=== PATIENT | male | born 1955 | race Caucasian/White ===

== ENCOUNTER → 2020-07-09 | Outpatient (CLI) | payer SELFPAY | LOC: M LABSMTC 15:16 | PROVIDERS: ATTEND Pediatrics | DX: Z20.828 Contact with and (suspected) exposure to other viral communicable diseases (principal) ==

== ENCOUNTER 2020-12-04 17:52 | Emergency (ER) | payer BC ==
[~2020-12-04] VITALS: Ht 165.1 cm; Wt 100.8 kg
[2020-12-04] MEDS ORDERED: NORT25CA2 (18:08)
[2020-12-04] MEDS ORDERED: DIVA500T94 (18:08)
[2020-12-04] MEDS ORDERED: PRAV20TA2 (18:08)
[2020-12-04] MEDS ORDERED: LEVO112T2 (18:08)
[2020-12-04] MEDS ORDERED: ATEN50TA2 (18:08)
[2020-12-04 18:45] LABS: BASO # 0.1 10^3/uL (0.0-0.2); BASO % 0.9 % (0.0-1.0); EOS # 0.6 10^3/uL (0.0-0.5); EOS % 5.4 % (0.0-3.0); HEMATOCRIT 46.7 % (42.0-52.0); HEMOGLOBIN 15.5 g/dl (13.5-17.5); LYMPH # 3.6 10^3/uL (1.5-5.0); LYMPH % 32.9 % (24.0-44.0); MEAN CORPUSCULAR HEMOGLOBIN 31.4 pg (27.0-33.0); MEAN CORPUSCULAR HGB CONC 33.2 g/dl (32.0-36.5); MEAN CORPUSCULAR VOLUME 94.7 fl (80.0-96.0); MONO # 0.9 10^3/uL (0.0-0.8); MONO % 8.1 % (2.0-8.0); NEUTROPHILS # 5.7 10^3/uL (1.5-8.5); NEUTROPHILS % 52.5 % (36.0-66.0); PLATELET COUNT, AUTOMATED 260 10^3/uL (150-450); RED BLOOD COUNT 4.93 10^6/uL (4.30-6.10); WHITE BLOOD COUNT 10.9 10^3/uL (4.0-10.0)
[2020-12-04 19:10] LABS: ALBUMIN 4.3 GM/DL (3.2-5.2); ALT/SGPT 26 U/L (12-78); BILIRUBIN,DIRECT 0.2 MG/DL (0.0-0.2); BILIRUBIN,TOTAL 0.5 MG/DL (0.2-1.0); BLOOD UREA NITROGEN 12 MG/DL (7-18); CALCIUM LEVEL 9.6 MG/DL (8.8-10.2); CARBON DIOXIDE LEVEL 30 MEQ/L (21-32); CHLORIDE LEVEL 106 MEQ/L (98-107); CREATININE FOR GFR 0.92 MG/DL (0.70-1.30); GLOMERULAR FILTRATION RATE > 60.0 (>49); GLUCOSE, FASTING 85 MG/DL (70-100); LIPASE 78 U/L (73-393); POTASSIUM SERUM 4.2 MEQ/L (3.5-5.1); SODIUM LEVEL 140 MEQ/L (136-145); TOTAL PROTEIN 7.8 GM/DL (6.4-8.2)
[2020-12-04 19:34] VITALS: BP 140/90
--- NOTE | 2020-12-04 19:40 | REP ---
INDICATION: ruq/flank pain. FINDINGS: Multiple ultrasonographic images of the liver show the hepatic parenchymal echo texture to appear unremarkable. There are no focal masses. There is no intrahepatic ductal dilatation. The common bile duct measures approximately 3 mm in its greatest transverse dimension. Multiple ultrasonographic images of the gallbladder show no focal or diffuse gallbladder wall thickening. There are no echogenic foci within the gallbladder lumen, which casts acoustic shadows. There is no pericholecystic edema. There is a tiny echogenic focus adherent to the gallbladder wall which does not cast an acoustic shadow or comet tail artifact. Images of the pancreatic region show no gross abnormality. The imaged portion of the right kidney is unremarkable. IMPRESSION: 3 mm sized possible gallbladder wall polyp but not seen on all images of the gallbladder. Examination otherwise within normal limits. Three-month follow-up is suggested. Accredited by the [employer] in General Ultrasound. <Electronically signed by Silvestre Zuniga > 12/04/201936
[2020-12-04] MEDS ORDERED: NS 1,000 ML IV ONE (20:05)
[2020-12-04] MEDS ORDERED: ISOVUE-370 76% 100ML VIAL As Ordered ONE (20:16)
--- NOTE | 2020-12-04 21:42 | REPVR ---
PROCEDURE INFORMATION: Exam: CT Abdomen And Pelvis With Contrast Exam date and time: 12/04/2020 8:27 PM Age: 65 years old Clinical indication: Abdominal pain; Localized; Right; Additional info: Right abd pain TECHNIQUE: Imaging protocol: Computed tomography of the abdomen and pelvis with contrast. Radiation optimization: All CT scans at this facility use at least one of these dose optimization techniques: automated exposure control; mA and/or kV adjustment per patient size (includes targeted exams where dose is matched to clinical indication); or iterative reconstruction. Contrast material: ISOVUE 370; Contrast volume: 100 ml; Contrast route: INTRAVENOUS (IV); COMPARISON: GALLBLADDER US 12/04/2020 7:15 PM FINDINGS: Lungs: The imaged portions of the lung bases are clear. The lungs were not fully imaged. Heart: No cardiomegaly or pericardial effusion. Liver: The attenuation of the liver is more than 40 Hounsfield units lower in attenuation compared to the spleen, which is compatible with fatty liver infiltration. No liver lesion. The contour of the liver is smooth. No hepatomegaly. Gallbladder and bile ducts: There is a 3 mm polyp along the posterior wall of the body of the gallbladder, which is better visualized in the gallbladder ultrasound on 12/04/2020 (image 37 of the sagittal series 203). No dilation of the bile ducts is noted. Pancreas: Normal. No dilation of the main pancreatic duct is noted. Spleen: Normal. No splenomegaly is noted. Adrenal glands: Normal. No adrenal mass is noted. Kidneys and ureters: There is a 1 cm round low-attenuation lesion along the posterior cortex of the lower pole of the left kidney with overlying renal cortical scarring (image 108 of the sagittal series 203), which measures approximately 36 Hounsfield units and is not fully characterized in this study. The right kidney is unremarkable. No stones are noted in the kidneys or ureters. There is no hydronephrosis or hydroureter. Stomach and bowel: The stomach is decompressed, limiting its optimal evaluation. The small bowel is unremarkable. There is no evidence for a bowel obstruction, diverticulosis, diverticulitis, colitis, perforated viscus, pneumatosis intestinalis, intussusception, or volvulus. The sigmoid colon is redundant. There is a moderate amount of formed stool in the ascending colon, transverse colon, and descending colon. Appendix: Normal. There is no evidence for appendicitis. Intraperitoneal space: Unremarkable. No fluid collection. No free air. Retroperitoneal space: No fluid collection. No mass. Vasculature: The abdominal aorta is patent, normal in caliber, and there is no dissection. The iliac arteries, common femoral arteries, renal arteries, celiac artery, superior mesenteric artery, and inferior mesenteric artery are patent. There are mild atherosclerotic calcifications. Lymph nodes: There is a 2.2 cm left para-aortic lymph node (image 65 of the axial series 201). There are subcentimeter precaval and periportal lymph nodes. Urinary bladder: The distended urinary bladder is normal in appearance. No stones or masses are seen in the bladder. Reproductive: The prostate gland and seminal vesicles are unremarkable. 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 The right L5 pars interarticularis is intact. There is no anterolisthesis of L5 on S1. No acute fracture or dislocation is noted. There are degenerative changes in the lumbar spine. Incidental note is made of a small bone island in the right femoral head. Soft tissues: There is a small fat containing indirect left inguinal hernia. IMPRESSION: 1. No acute findings in the abdomen or pelvis. 2. Moderate amount of formed stool in the ascending colon, transverse colon, and descending colon. No bowel obstruction. 3. Small fat containing indirect left inguinal hernia. 4. 3 mm polyp in the body of the gallbladder. See management guidelines below. 5. 1 cm indeterminate lesion along the posterior cortex of the lower pole of the left kidney. Further evaluation can be performed with a renal ultrasound or renal protocol MRI or CT without and with intravenous contrast on a nonemergent basis. 6. 2.2 cm enlarged left para-aortic lymph node. COMMENTS: Consistent with the [employer]'s Incidental Findings Committee white paper (J Am Avinash Radiol 2018): Any incidental renal lesion less than 1 cm or classified as too small to characterize, or any incidental cystic renal lesion characterized as simple-appearing, is likely benign. No follow-up imaging is recommended for these lesions per consensus recommendations based on imaging criteria. If the patient has no risk factors* for gallbladder malignancy: For polyp <6 mm, follow-up ultrasound at 1, 3, and 5 years. For polyp >6 mm, follow-up ultrasound at 6 months, then yearly for 5 years. If polyp increases in size >2 mm, consider cholecystectomy. For polyp >10 mm, cholecystectomy recommended. If the patient has risk factors* for gallbladder malignancy: For polyp <6 mm, follow-up ultrasound at 6 months, then yearly for 5 years. If polyp increases in size >2 mm, consider cholecystectomy. For polyp >6 mm, consider cholecystectomy. For polyp >10 mm, cholecystectomy recommended. *Risk factors for gallbladder malignancy: >50 years old, primary sclerosing cholangitis, ethnicity, sessile polyp, or focal wall thickening >4 mm. Electronically signed by: Meir Woods On 12/04/2020 21:41:50 PM
--- NOTE | 2020-12-05 06:44 | ED PDOC ---
Post-Departure Follow-Up dr man faxed formal report of us for fu Modesto Peguero MD December 05, 2020 06:44
== END 2020-12-04 22:58 | disposition home or self-care (01) ==
LOC: M ED 17:52
DX: K59.00 Constipation, unspecified (principal); K82.4 Cholesterolosis of gallbladder; S39.011A Strain of muscle, fascia and tendon of abdomen, initial encounter; X58.XXXA Exposure to other specified factors, initial encounter; Y92.89 Other specified places as the place of occurrence of the external cause; I10 Essential (primary) hypertension; E03.9 Hypothyroidism, unspecified; E78.5 Hyperlipidemia, unspecified; J30.2 Other seasonal allergic rhinitis; Z79.899 Other long term (current) drug therapy; Z79.890 Hormone replacement therapy
CPT/HCPCS: 74177; 76705; 80048; 80076; 81001; 83690; 85025; 96360; 99284; Q9967

== ENCOUNTER → 2021-03-18 | Outpatient (CLI) | payer MEDICARE, BC ==
[~2021-03-18] MED LIST: ATEN50TA2; DIVA500T94; LEVO112T2; NORT25CA2; PRAV20TA2
--- NOTE | 2021-03-18 10:14 | REP ---
INDICATION: F/U GB POLYP COMPARISON: 12/04/2020 TECHNIQUE: Real time gupta scale ultrasound examination using curved array transducer. FINDINGS: Liver is essentially normal in contour, size, and echogenicity without focal hepatic lesions identified. Pancreas is incompletely evaluated due to interposed bowel gas. The gallbladder again demonstrates a sub cm nonshadowing echogenic focus likely representing small benign polyp. No gallbladder wall thickening, pericholecystic fluid, or gallstones are identified. No biliary ductal dilatation is appreciated and the common bile duct measures 3 mm diameter. Right kidney is normal in reniform shape without hydronephrosis and measures 12.0 x 5.7 x 6.8 cm. No ascites in the visualized right upper quadrant. IMPRESSION: Findings consistent with small benign gallbladder polyp. Consider 12 month follow-up to confirm stability. <Electronically signed by Xavi Riggs > 03/18/21 [id number]
== END ==
LOC: M RAD 09:25
PROVIDERS: ATTEND Family Medicine
DX: K82.4 Cholesterolosis of gallbladder (principal)

== ENCOUNTER → 2022-04-14 | Outpatient (CLI) | payer MEDICARE, BC ==
[2022-04-14 14:39] LABS: LDH LACTATE DEHYDROGENASE 252 U/L (87-241); TOTAL PROTEIN 8.1 GM/DL (6.4-8.2)
[2022-04-15 15:45] LABS: ALBUMIN 4.46 GM/DL (3.29-5.55); ALPHA-1-GLOBULIN % 4.7 % (2.9-4.9); ALPHA-1-GLOBULINS 0.38 GM/DL (0.17-0.41); ALPHA-2-GLOBULINS 0.98 GM/DL (0.42-0.99); ALPHA-2-GLOBULINS % 12.1 % (7.1-11.8); BETA-1-GLOBULINS 0.54 GM/DL (0.28-0.60); BETA-1-GLOBULINS % 6.7 % (4.7-7.2); BETA-2-GLOBULINS 0.59 GM/DL (0.19-0.55); BETA-2-GLOBULINS % 7.3 % (3.2-6.5); GAMMA GLOBULIN % 14.2 % (11.1-18.8); GAMMA GLOBULINS 1.15 GM/DL (0.65-1.58)
== END ==
LOC: M PLALAB 09:45
PROVIDERS: ATTEND Physician Assistant
DX: D41.02 Neoplasm of uncertain behavior of left kidney (principal)

== ENCOUNTER → 2022-04-16 | Outpatient (CLI) | payer MEDICARE, BC ==
[~2022-04-16] MED LIST changes: +ISOVUE-370 76% 100ML VIAL As Ordered ONE
== END ==
LOC: M RAD 16:04
PROVIDERS: ATTEND Physician Assistant
DX: D41.02 Neoplasm of uncertain behavior of left kidney (principal)
CPT/HCPCS: 74178; Q9967

== ENCOUNTER → 2022-05-08 | Outpatient (REF) | payer MEDICARE, BC ==
[~2022-05-08] MED LIST changes: +ASPI81TA26 PO; +ELIQ5TAB; +ELIQ5TAB PO; +FLON1SPR NARES; +GABA-282; -ISOVUE-370 76% 100ML VIAL As Ordered ONE
[2022-05-08 14:37] LABS: INR 1.06; PROTHROMBIN TIME 14.2 SECONDS (12.7-14.5)
[2022-05-08 14:38] LABS: PARTIAL THROMBOPLASTIN TIME 35.2 SECONDS (25.9-37.0)
== END ==
LOC: M LAB REF 14:11
PROVIDERS: ATTEND Physician Assistant
DX: R59.0 Localized enlarged lymph nodes (principal)

== ENCOUNTER → 2022-05-14 | Outpatient (CLI) | payer MEDICARE, BC ==
[~2022-05-14] MED LIST changes: -ATEN50TA2; +ATEN50TA2 PO; -DIVA500T94; +DIVA500T94 PO; -GABA-282; +GABA-282 PO; +HYDR-3713 PO; +IBUP80TA PO; -LEVO112T2; +LEVO112T2 PO; +LIDOCAINE 1% MDV 20ML VIAL As Ordered ONE; -NORT25CA2; +NORT25CA2 PO; +ONDA4TAB6 PO; -PRAV20TA2; +PRAV20TA2 PO
[2022-05-14 09:26] VITALS: BP 145/87
== END ==
LOC: M IRPRO 08:17
PROVIDERS: ATTEND Physician Assistant
DX: C77.2 Secondary and unspecified malignant neoplasm of intra-abdominal lymph nodes (principal); C64.9 Malignant neoplasm of unspecified kidney, except renal pelvis

== ENCOUNTER 2022-05-16 20:44 | Emergency (ER) | payer MEDICARE, BC ==
[~2022-05-16] VITALS: Ht 165.1 cm; Wt 97.7 kg
[~2022-05-16 20:44] MED LIST changes: -HYDR-3713 PO; -IBUP80TA PO; -LIDOCAINE 1% MDV 20ML VIAL As Ordered ONE; -ONDA4TAB6 PO
[2022-05-16 21:58] LABS: HEMATOCRIT 41.9 % (42.0-52.0); HEMOGLOBIN 13.8 g/dl (13.5-17.5); MEAN CORPUSCULAR HEMOGLOBIN 30.7 pg (27.0-33.0); MEAN CORPUSCULAR HGB CONC 32.9 g/dl (32.0-36.5); MEAN CORPUSCULAR VOLUME 93.1 fl (80.0-96.0); PLATELET COUNT, AUTOMATED 233 10^3/uL (150-450); WHITE BLOOD COUNT 13.6 10^3/uL (4.0-10.0)
[2022-05-16 22:12] LABS: ATYPICAL LYMPH 3 % (0-5); BASOPHILS 1 % (0-1); EOSINOPHILS 1 % (0-3); LYMPHOCYTES 12 % (16-44); MONOCYTES 9 % (0-5); MYELOCYTES 1 % (0-0); NEUTROPHILS 70 % (28-66); PLATELET CLUMPS SMALL AMT; PLATELET ESTIMATE NORMAL (NORMAL)
[2022-05-16 22:31] LABS: ALBUMIN 3.7 GM/DL (3.2-5.2); BILIRUBIN,DIRECT 0.3 MG/DL (0.0-0.2); BILIRUBIN,TOTAL 0.9 MG/DL (0.2-1.0); TOTAL PROTEIN 8.2 GM/DL (6.4-8.2)
[2022-05-16] MEDS ORDERED: ONDANSETRON 4MG 2ML VIAL IV ONE (23:40)
[2022-05-16] MEDS ORDERED: NS 1,000 ML IV ONE (23:40)
[2022-05-16] MEDS ORDERED: MORPHINE 4 MG/ML 1ML VIAL/SYRINGE IV ONE (23:40)
[2022-05-16] MEDS ORDERED: ISOVUE-370 76% 100ML VIAL As Ordered ONE (23:46)
[2022-05-17 00:35] LABS: INR 1.17; PARTIAL THROMBOPLASTIN TIME 36.8 SECONDS (24.8-34.2); PROTHROMBIN TIME 15.1 SECONDS (12.5-14.5)
[2022-05-17 00:45] VITALS: BP 140/65
[2022-05-17] MEDS ORDERED: HYDR-3713 PO (02:03)
[2022-05-17] MEDS ORDERED: NORCO 5/325MG TABLET (HOME DOSE PACK) PO ONE (02:10)
[2022-05-17] MEDS ORDERED: ONDA4TAB6 PO (02:18)
[2022-05-19] MEDS ORDERED: IBUP80TA PO (12:11)
[2022-05-20] MEDS ORDERED: ELIQ5TAB PO (14:28)
[2022-05-21] MEDS ORDERED: ELIQ5TAB PO (10:06)
== END 2022-05-17 02:25 | disposition home or self-care (01) ==
LOC: M ED 20:44
DX: R10.9 Unspecified abdominal pain (principal); R11.0 Nausea; I82.3 Embolism and thrombosis of renal vein; R51.9 Headache, unspecified; I10 Essential (primary) hypertension; E03.9 Hypothyroidism, unspecified; G47.30 Sleep apnea, unspecified; E66.9 Obesity, unspecified; Z79.01 Long term (current) use of anticoagulants; Z79.899 Other long term (current) drug therapy; Z79.890 Hormone replacement therapy
CPT/HCPCS: 74177; 80047; 80076; 81000; 83605; 83690; 85025; 85610; 85730; 87040; 96361; 96374; 96375; 99284; J2270; J2405; Q9967

== ENCOUNTER → 2022-06-01 | Outpatient (CLI) | payer MEDICARE, BC ==
[~2022-06-01] MED LIST changes: +HYDR-3713 PO; +IBUP80TA PO; +ONDA4TAB6 PO
== END ==
LOC: M LABSMTC 11:37
PROVIDERS: ATTEND Anesthesiology
DX: Z01.818 Encounter for other preprocedural examination (principal); Z11.52 Encounter for screening for COVID-19

== ENCOUNTER 2022-06-03 08:31 | Day surgery (SDC) | payer MEDICARE, BC ==
[~2022-06-03] VITALS: Ht 165.1 cm; Wt 97.1 kg
[~2022-06-03 08:31] MED LIST changes: +NS 1,000 ML IV ONE
[2022-06-03] MEDS ORDERED: propofoL 200 MG/20 ML VIAL As Ordered ONE (09:37)
[2022-06-03] MEDS ORDERED: LIDOCAINE 2% 100MG/5ML SDV (FOR ANES.) As Ordered ONE (09:37)
[2022-06-03 11:20] VITALS: BP 143/99
== END 2022-06-03 11:40 | disposition home or self-care (01) ==
LOC: M OPP 08:31
PROVIDERS: ATTEND Internal Medicine Gastroenterology
DX: Z12.11 Encounter for screening for malignant neoplasm of colon (principal); Z86.010 Personal history of colon polyps; D12.3 Benign neoplasm of transverse colon; D12.4 Benign neoplasm of descending colon; G47.30 Sleep apnea, unspecified; Z99.89 Dependence on other enabling machines and devices; Z79.01 Long term (current) use of anticoagulants; Z79.02 Long term (current) use of antithrombotics/antiplatelets; Z79.51 Long term (current) use of inhaled steroids; Z79.82 Long term (current) use of aspirin; Z79.899 Other long term (current) drug therapy; G43.909 Migraine, unspecified, not intractable, without status migrainosus; I10 Essential (primary) hypertension; E03.9 Hypothyroidism, unspecified

== ENCOUNTER → 2022-07-15 | Outpatient (CLI) | payer MEDICARE, BC ==
[~2022-07-15] MED LIST changes: +CABO40TA PO; -NS 1,000 ML IV ONE
[2022-07-15 14:37] LABS: BASO # 0.1 10^3/uL (0.0-0.2); EOS # 0.2 10^3/uL (0.0-0.5); EOS % 1.7 % (0.0-3.0); HEMATOCRIT 46.2 % (42.0-52.0); HEMOGLOBIN 14.6 g/dl (13.5-17.5); LYMPH # 2.6 10^3/uL (1.5-5.0); LYMPH % 25.6 % (24.0-44.0); MEAN CORPUSCULAR HEMOGLOBIN 28.6 pg (27.0-33.0); MEAN CORPUSCULAR HGB CONC 31.6 g/dl (32.0-36.5); MEAN CORPUSCULAR VOLUME 90.6 fl (80.0-96.0); MONO # 0.9 10^3/uL (0.0-0.8); MONO % 9.2 % (2.0-8.0); NEUTROPHILS # 6.2 10^3/uL (1.5-8.5); NEUTROPHILS % 62.2 % (36.0-66.0); PLATELET COUNT, AUTOMATED 354 10^3/uL (150-450)
[2022-07-15 15:18] LABS: ALBUMIN 3.8 G/DL (3.2-5.2); ALKALINE PHOSPHATASE 59 U/L (46-116); ALT/SGPT 44 U/L (7.0-40); AST/SGOT 38 U/L (<34); BILIRUBIN,TOTAL 0.3 MG/DL (0.3-1.2); BLOOD UREA NITROGEN 18 MG/DL (9-23); CARBON DIOXIDE LEVEL 30 MMOL/L (20-31); CHLORIDE LEVEL 98 MMOL/L (98-107); CREATININE FOR GFR 1.19 MG/DL (0.70-1.30); GLOMERULAR FILTRATION RATE > 60.0 (>49); GLUCOSE, FASTING 90 MG/DL (74-106); SODIUM LEVEL 136 MMOL/L (136-145); THYROID STIMULATING HORMONE 0.994 uIU/ML (0.55-4.78); TOTAL PROTEIN 8.2 G/DL (5.7-8.2)
== END ==
LOC: M PLALAB 11:30
DX: C64.2 Malignant neoplasm of left kidney, except renal pelvis (principal)

== ENCOUNTER → 2022-07-18 | Outpatient (CLI) | payer MEDICARE, BC ==
[~2022-07-18] MED LIST changes: +AMLO1TAB24 PO; +OXYC1TAB23 PO
[2022-07-18 15:38] LABS: MAGNESIUM LEVEL 2.2 MG/DL (1.8-2.4)
[2022-07-18 15:40] LABS: ALBUMIN 3.7 G/DL (3.2-5.2); ALKALINE PHOSPHATASE 57 U/L (46-116); ALT/SGPT 36 U/L (7.0-40); AST/SGOT 33 U/L (<34); BILIRUBIN,TOTAL 0.4 MG/DL (0.3-1.2); BLOOD UREA NITROGEN 17 MG/DL (9-23); CALCIUM LEVEL 9.3 MG/DL (8.3-10.6); CARBON DIOXIDE LEVEL 30 MMOL/L (20-31); CHLORIDE LEVEL 100 MMOL/L (98-107); CREATININE FOR GFR 1.09 MG/DL (0.70-1.30); GLOMERULAR FILTRATION RATE > 60.0 (>49); GLUCOSE, FASTING 89 MG/DL (74-106); POTASSIUM SERUM 4.9 MMOL/L (3.5-5.1); SODIUM LEVEL 137 MMOL/L (136-145); TOTAL PROTEIN 7.8 G/DL (5.7-8.2)
== END ==
LOC: M PLALAB 13:48
PROVIDERS: ATTEND Physician Assistant
DX: C64.2 Malignant neoplasm of left kidney, except renal pelvis (principal)

== ENCOUNTER → 2022-07-21 | Outpatient (CLI) | payer MEDICARE, BC ==
[~2022-07-21] MED LIST changes: +LIDOCAINE 1% MDV 20ML VIAL As Ordered ONE; +MIDAZOLAM INJ 2MG/2ML VIAL (J2250 PER 1MG) As Ordered ONE; +NS 1,000 ML IV SCH; +ceFAZolin 2 GM/D5W 50 ML IV BAG As Ordered ONE; +ceFAZolin SOD 2 GM in IV 1 EA IV ONE; +diphenhydrAMINE 50MG/ML VIAL As Ordered ONE; +fentaNYL 100 MCG/2 ML INJECTION As Ordered ONE
[2022-07-21 12:00] VITALS: BP 138/89
== END ==
LOC: M IRPRO 07:30
DX: C64.2 Malignant neoplasm of left kidney, except renal pelvis (principal)
CPT/HCPCS: 36561; 87635; 99152; 99153; C1769; C1788; C1894; J0690; J1200; J1642; J1644; J2250; J3010

== ENCOUNTER 2022-07-28 12:12 | Emergency (ER) | payer MEDICARE, BC ==
[~2022-07-28] VITALS: Ht 165.1 cm; Wt 97.7 kg
[~2022-07-28 12:12] MED LIST changes: -LIDOCAINE 1% MDV 20ML VIAL As Ordered ONE; -MIDAZOLAM INJ 2MG/2ML VIAL (J2250 PER 1MG) As Ordered ONE; -NS 1,000 ML IV SCH; -ceFAZolin 2 GM/D5W 50 ML IV BAG As Ordered ONE; -ceFAZolin SOD 2 GM in IV 1 EA IV ONE; -diphenhydrAMINE 50MG/ML VIAL As Ordered ONE; -fentaNYL 100 MCG/2 ML INJECTION As Ordered ONE
[2022-07-28] MEDS ORDERED: OPDI1INJ IV (13:11)
[2022-07-28 13:25] LABS: BASO # 0.1 10^3/uL (0.0-0.2); EOS # 0.2 10^3/uL (0.0-0.5); EOS % 2.9 % (0.0-3.0); HEMATOCRIT 41.4 % (42.0-52.0); HEMOGLOBIN 13.6 g/dl (13.5-17.5); LYMPH # 1.7 10^3/uL (1.5-5.0); MEAN CORPUSCULAR HEMOGLOBIN 28.5 pg (27.0-33.0); MEAN CORPUSCULAR HGB CONC 32.9 g/dl (32.0-36.5); MEAN CORPUSCULAR VOLUME 86.6 fl (80.0-96.0); MONO # 0.6 10^3/uL (0.0-0.8); MONO % 8.3 % (2.0-8.0); NEUTROPHILS # 4.7 10^3/uL (1.5-8.5); NEUTROPHILS % 64.7 % (36.0-66.0); PLATELET COUNT, AUTOMATED 214 10^3/uL (150-450); RED BLOOD COUNT 4.78 10^6/uL (4.30-6.10); WHITE BLOOD COUNT 7.2 10^3/uL (4.0-10.0)
[2022-07-28 13:37] LABS: INR 0.97; PROTHROMBIN TIME 13.1 SECONDS (12.5-14.5)
[2022-07-28 13:38] LABS: PARTIAL THROMBOPLASTIN TIME 31.5 SECONDS (24.8-34.2)
[2022-07-28 13:42] LABS: LIPASE 32 U/L (12-53)
[2022-07-28 13:44] LABS: BILIRUBIN,DIRECT 0.1 MG/DL (<0.4)
[2022-07-28 13:45] LABS: ALBUMIN 3.4 G/DL (3.2-5.2); ALKALINE PHOSPHATASE 66 U/L (46-116); ALT/SGPT 41 U/L (7.0-40); AST/SGOT 49 U/L (<34); BILIRUBIN,TOTAL 0.4 MG/DL (0.3-1.2); BLOOD UREA NITROGEN 13 MG/DL (9-23); CALCIUM LEVEL 9.1 MG/DL (8.3-10.6); CARBON DIOXIDE LEVEL 27 MMOL/L (20-31); CHLORIDE LEVEL 103 MMOL/L (98-107); CK-MB VALUE MASS < 1.0 NG/ML (<3.6); CREATININE FOR GFR 0.91 MG/DL (0.70-1.30); GLOMERULAR FILTRATION RATE > 60.0 (>49); GLUCOSE, FASTING 97 MG/DL (74-106); POTASSIUM SERUM 5.5 MMOL/L (3.5-5.1); SODIUM LEVEL 139 MMOL/L (136-145); TOTAL PROTEIN 7.9 G/DL (5.7-8.2)
[2022-07-28 13:48] LABS: FREE T4 1.42 NG/DL (0.89-1.76); THYROID STIMULATING HORMONE 0.766 uIU/ML (0.55-4.78)
[2022-07-28 13:51] LABS: CPK CREATINE PHOSPHOKINASE 145 U/L (46-171); MB/CK RELATIVE INDEX 0.68 (< OR =4)
[2022-07-28 14:39] LABS: CK-MB VALUE MASS < 1.0 NG/ML (<3.6)
[2022-07-28 14:41] LABS: CPK CREATINE PHOSPHOKINASE 115 U/L (46-171); MB/CK RELATIVE INDEX 0.86 (< OR =4)
[2022-07-28 15:15] VITALS: BP 148/95
[2022-07-28] MEDS ORDERED: HYDR-3490 PO (15:32)
== END 2022-07-28 15:48 | disposition home or self-care (01) ==
LOC: EDBD 12:12 → M ED 12:12
DX: I10 Essential (primary) hypertension (principal); T46.1X5A Adverse effect of calcium-channel blockers, initial encounter; C64.9 Malignant neoplasm of unspecified kidney, except renal pelvis; E78.5 Hyperlipidemia, unspecified; F10.10 Alcohol abuse, uncomplicated; G47.33 Obstructive sleep apnea (adult) (pediatric); Z79.810 Long term (current) use of selective estrogen receptor modulators (SERMs); Z79.891 Long term (current) use of opiate analgesic; Z79.899 Other long term (current) drug therapy

== ENCOUNTER → 2022-08-05 | Outpatient (POV) | payer MEDICARE, BC ==
[~2022-08-05] VITALS: Ht 165.1 cm; Wt 97.7 kg
[~2022-08-05] MED LIST changes: +HYDR-3490 PO; +OPDI1INJ IV
[2022-08-05 11:20] VITALS: BP 136/95
== END ==
LOC: M IRPOV 11:05
PROVIDERS: ATTEND Radiology Diagnostic Radiology
DX: Z45.2 Encounter for adjustment and management of vascular access device (principal); J30.89 Other allergic rhinitis

== ENCOUNTER → 2022-10-14 | Outpatient (CLI) | payer MEDICARE, BC ==
[~2022-10-14] MED LIST changes: +LOSA50TA28 PO; +PROHANCE 279.3MG/ML 15ML VIAL As Ordered ONE; +PROHANCE 279.3MG/ML 5ML VIAL As Ordered ONE
== END ==
LOC: M RAD 08:53
DX: C64.2 Malignant neoplasm of left kidney, except renal pelvis (principal)
CPT/HCPCS: 70553; A9576; J1642

== ENCOUNTER → 2022-10-17 | Outpatient (CLI) | payer MEDICARE, BC ==
[~2022-10-17] MED LIST changes: -PROHANCE 279.3MG/ML 15ML VIAL As Ordered ONE; -PROHANCE 279.3MG/ML 5ML VIAL As Ordered ONE
[2022-10-17 12:53] LABS: ALBUMIN 3.3 G/DL (3.2-5.2); ALKALINE PHOSPHATASE 43 U/L (46-116); ALT/SGPT 30 U/L (7.0-40); AST/SGOT 19 U/L (<34); BILIRUBIN,TOTAL 0.6 MG/DL (0.3-1.2); BLOOD UREA NITROGEN 11 MG/DL (9-23); CARBON DIOXIDE LEVEL 31 MMOL/L (20-31); CHLORIDE LEVEL 97 MMOL/L (98-107); GLOMERULAR FILTRATION RATE > 60.0 (>49); GLUCOSE, FASTING 123 MG/DL (74-106); POTASSIUM SERUM 4.2 MMOL/L (3.5-5.1); SODIUM LEVEL 135 MMOL/L (136-145)
[2022-10-17 18:08] LABS: TOTAL PROTEIN 6.7 G/DL (5.7-8.2)
== END ==
LOC: M PLALAB 08:58
PROVIDERS: ATTEND Physician Assistant
DX: C64.2 Malignant neoplasm of left kidney, except renal pelvis (principal)

== ENCOUNTER → 2022-11-06 | Outpatient (CLI) | payer MEDICARE, BC ==
[2022-11-06 14:43] LABS: LIPASE 35 U/L (12-53)
[2022-11-06 14:44] LABS: AMYLASE 102 U/L (30-118)
[2022-11-06 14:45] LABS: ALBUMIN 3.8 G/DL (3.2-5.2); ALKALINE PHOSPHATASE 43 U/L (46-116); ALT/SGPT 37 U/L (7.0-40); AST/SGOT 26 U/L (<34); BILIRUBIN,TOTAL 0.3 MG/DL (0.3-1.2); BLOOD UREA NITROGEN 16 MG/DL (9-23); CALCIUM LEVEL 9.4 MG/DL (8.3-10.6); CARBON DIOXIDE LEVEL 31 MMOL/L (20-31); CHLORIDE LEVEL 100 MMOL/L (98-107); CREATININE FOR GFR 1.24 MG/DL (0.70-1.30); GLOMERULAR FILTRATION RATE > 60.0 (>49); GLUCOSE, FASTING 91 MG/DL (74-106); POTASSIUM SERUM 4.4 MMOL/L (3.5-5.1); SODIUM LEVEL 139 MMOL/L (136-145); TOTAL PROTEIN 7.4 G/DL (5.7-8.2)
[2022-11-06 14:48] LABS: BASO # 0.1 10^3/uL (0.0-0.2); BASO % 0.8 % (0.0-1.0); EOS # 0.6 10^3/uL (0.0-0.5); EOS % 5.9 % (0.0-3.0); HEMATOCRIT 39.9 % (42.0-52.0); LYMPH # 2.1 10^3/uL (1.5-5.0); LYMPH % 22.1 % (24.0-44.0); MEAN CORPUSCULAR HEMOGLOBIN 32.3 pg (27.0-33.0); MEAN CORPUSCULAR HGB CONC 32.6 g/dl (32.0-36.5); MEAN CORPUSCULAR VOLUME 99.3 fl (80.0-96.0); MONO # 0.9 10^3/uL (0.0-0.8); MONO % 9.3 % (2.0-8.0); NEUTROPHILS % 61.7 % (36.0-66.0); PLATELET COUNT, AUTOMATED 291 10^3/uL (150-450); RED BLOOD COUNT 4.02 10^6/uL (4.30-6.10); WHITE BLOOD COUNT 9.7 10^3/uL (4.0-10.0)
== END ==
LOC: M PLALAB 10:14
PROVIDERS: ATTEND Family Medicine
DX: C64.2 Malignant neoplasm of left kidney, except renal pelvis (principal)

== ENCOUNTER → 2022-11-13 | Outpatient (CLI) | payer MEDICARE, BC ==
[2022-11-13 11:56] LABS: BASO # 0.1 10^3/uL (0.0-0.2); BASO % 1.2 % (0.0-1.0); EOS # 0.5 10^3/uL (0.0-0.5); EOS % 5.3 % (0.0-3.0); HEMATOCRIT 41.7 % (42.0-52.0); HEMOGLOBIN 13.5 g/dl (13.5-17.5); LYMPH # 1.8 10^3/uL (1.5-5.0); LYMPH % 18.8 % (24.0-44.0); MEAN CORPUSCULAR HEMOGLOBIN 31.8 pg (27.0-33.0); MEAN CORPUSCULAR HGB CONC 32.4 g/dl (32.0-36.5); MEAN CORPUSCULAR VOLUME 98.3 fl (80.0-96.0); MONO # 0.6 10^3/uL (0.0-0.8); MONO % 6.5 % (2.0-8.0); NEUTROPHILS # 6.5 10^3/uL (1.5-8.5); NEUTROPHILS % 68.1 % (36.0-66.0); PLATELET COUNT, AUTOMATED 318 10^3/uL (150-450); RED BLOOD COUNT 4.24 10^6/uL (4.30-6.10); WHITE BLOOD COUNT 9.5 10^3/uL (4.0-10.0)
[2022-11-13 12:06] LABS: ALBUMIN 3.7 G/DL (3.2-5.2); BILIRUBIN,TOTAL 0.4 MG/DL (0.3-1.2); CALCIUM LEVEL 9.6 MG/DL (8.3-10.6); CREATININE FOR GFR 1.35 MG/DL (0.70-1.30); GLOMERULAR FILTRATION RATE 56.3 (>49); TOTAL PROTEIN 7.3 G/DL (5.7-8.2)
== END ==
LOC: M PLALAB 08:33
DX: C64.2 Malignant neoplasm of left kidney, except renal pelvis (principal)

== ENCOUNTER → 2022-11-20 | Outpatient (CLI) | payer MEDICARE, BC ==
[2022-11-20 11:12] LABS: BASO # 0.1 10^3/uL (0.0-0.2); BASO % 0.7 % (0.0-1.0); EOS # 0.6 10^3/uL (0.0-0.5); EOS % 6.5 % (0.0-3.0); HEMATOCRIT 38.3 % (42.0-52.0); HEMOGLOBIN 12.7 g/dl (13.5-17.5); LYMPH % 19.8 % (24.0-44.0); MEAN CORPUSCULAR HEMOGLOBIN 31.9 pg (27.0-33.0); MEAN CORPUSCULAR HGB CONC 33.2 g/dl (32.0-36.5); MEAN CORPUSCULAR VOLUME 96.2 fl (80.0-96.0); MONO # 0.6 10^3/uL (0.0-0.8); MONO % 5.9 % (2.0-8.0); NEUTROPHILS # 6.6 10^3/uL (1.5-8.5); NEUTROPHILS % 66.9 % (36.0-66.0); PLATELET COUNT, AUTOMATED 332 10^3/uL (150-450); RED BLOOD COUNT 3.98 10^6/uL (4.30-6.10); WHITE BLOOD COUNT 9.9 10^3/uL (4.0-10.0)
[2022-11-20 11:41] LABS: ALBUMIN 3.4 G/DL (3.2-5.2); BILIRUBIN,TOTAL 0.4 MG/DL (0.3-1.2); CALCIUM LEVEL 9.4 MG/DL (8.3-10.6); CREATININE FOR GFR 1.29 MG/DL (0.70-1.30); GLOMERULAR FILTRATION RATE 59.3 (>49); POTASSIUM SERUM 4.3 MMOL/L (3.5-5.1); TOTAL PROTEIN 7.4 G/DL (5.7-8.2)
== END ==
LOC: M PLALAB 08:58
PROVIDERS: ATTEND Nurse Practitioner
DX: C64.2 Malignant neoplasm of left kidney, except renal pelvis (principal)

== ENCOUNTER → 2023-07-03 | Outpatient (CLI) | payer MEDICARE, BC ==
[~2023-07-03] MED LIST changes: +CABO20TA; +LEVO125T4
== END ==
LOC: M RAD 11:21
PROVIDERS: ATTEND Physician Assistant Medical
DX: M79.661 Pain in right lower leg (principal); M79.89 Other specified soft tissue disorders

== ENCOUNTER → 2023-08-12 | Outpatient (CLI) | payer MEDICARE, BC ==
[~2023-08-12] MED LIST changes: +PROHANCE 279.3MG/ML 15ML VIAL As Ordered ONE; +PROHANCE 279.3MG/ML 5ML VIAL As Ordered ONE
== END ==
LOC: M RAD 14:29
DX: M54.50 Low back pain, unspecified (principal)
CPT/HCPCS: 72157; A9576

== ENCOUNTER → 2023-09-04 | Outpatient (CLI) | payer MEDICARE, BC ==
[~2023-09-04] MED LIST changes: -PROHANCE 279.3MG/ML 15ML VIAL As Ordered ONE; -PROHANCE 279.3MG/ML 5ML VIAL As Ordered ONE
== END ==
LOC: M PLARAD 09:58
PROVIDERS: ATTEND Physician Assistant Medical
DX: M54.50 Low back pain, unspecified (principal)

== ENCOUNTER → 2023-09-30 | Outpatient (CLI) | payer MEDICARE, BC | LOC: M ONCR 10:45 | PROVIDERS: ATTEND General Practice | DX: C79.51 Secondary malignant neoplasm of bone (principal); C64.9 Malignant neoplasm of unspecified kidney, except renal pelvis; Z79.620 Long term (current) use of immunosuppressive biologic; G89.3 Neoplasm related pain (acute) (chronic); Z71.2 Person consulting for explanation of examination or test findings; Z79.01 Long term (current) use of anticoagulants; Z79.51 Long term (current) use of inhaled steroids; Z79.890 Hormone replacement therapy; Z79.899 Other long term (current) drug therapy ==

== ENCOUNTER → 2023-10-09 | Outpatient (CLI) | payer MEDICARE, BC ==
[~2023-10-09] MED LIST changes: +PROHANCE 279.3MG/ML 15ML VIAL ONE; +PROHANCE 279.3MG/ML 5ML VIAL ONE
== END ==
LOC: M PLAIMG 12:31
PROVIDERS: ATTEND Physician Assistant Medical
DX: C64.2 Malignant neoplasm of left kidney, except renal pelvis (principal); M48.02 Spinal stenosis, cervical region; M54.50 Low back pain, unspecified
CPT/HCPCS: 70553; 72156; A9576

== ENCOUNTER 2023-10-20 08:51 | Outpatient (RCR) | payer MEDICARE, BC ==
[~2023-10-20 08:51] MED LIST changes: +DEXA4TA PO; -PROHANCE 279.3MG/ML 15ML VIAL ONE; -PROHANCE 279.3MG/ML 5ML VIAL ONE
[2023-11-03] MEDS ORDERED: DEXA4TA PO (15:06)
== END 2023-11-01 ==
LOC: M ONCR 08:51
PROVIDERS: ATTEND General Practice
DX: Z51.0 Encounter for antineoplastic radiation therapy (principal); C79.51 Secondary malignant neoplasm of bone

== ENCOUNTER → 2023-10-28 | Outpatient (CLI) | payer MEDICARE, BC ==
[~2023-10-28] MED LIST changes: +LIDOCAINE 1% MDV 20ML VIAL As Ordered ONE
[2023-10-28 11:45] VITALS: TEMP 97.5
[2023-10-28 12:19] LABS: INR 1.06; PROTHROMBIN TIME 13.5 SECONDS (12.5-14.5)
[2023-10-28 14:45] VITALS: BP 131/90; O2SAT 96
== END ==
LOC: M IRPRO 11:33
PROVIDERS: ATTEND Physician Assistant Medical
DX: C64.2 Malignant neoplasm of left kidney, except renal pelvis (principal)

== ENCOUNTER → 2023-11-03 | Outpatient (CLI) | payer MEDICARE, BC ==
[~2023-11-03] MED LIST changes: -LIDOCAINE 1% MDV 20ML VIAL As Ordered ONE
== END ==
LOC: M ONCR 09:23
PROVIDERS: ATTEND General Practice
DX: C64.2 Malignant neoplasm of left kidney, except renal pelvis (principal); M89.8X8 Other specified disorders of bone, other site; M54.9 Dorsalgia, unspecified; G89.29 Other chronic pain; J30.2 Other seasonal allergic rhinitis; Z79.899 Other long term (current) drug therapy; Z92.21 Personal history of antineoplastic chemotherapy; Z92.3 Personal history of irradiation

== ENCOUNTER → 2023-11-06 | Outpatient (CLI) | payer MEDICARE, BC ==
[~2023-11-06] MED LIST changes: +GASTROGRAFIN SOLUTION 30ML ONE; +ISOVUE-370 76% 100ML VIAL ONE
== END ==
LOC: M PLAIMG 08:59
PROVIDERS: ATTEND Nurse Practitioner
DX: C64.2 Malignant neoplasm of left kidney, except renal pelvis (principal); I82.3 Embolism and thrombosis of renal vein
CPT/HCPCS: 71260; 74177; Q9963; Q9967

== ENCOUNTER → 2024-02-10 | Outpatient (CLI) | payer MEDICARE, BC ==
[~2024-02-10] MED LIST changes: -GASTROGRAFIN SOLUTION 30ML ONE; -ISOVUE-370 76% 100ML VIAL ONE; +ONDA-282 PO; -ONDA4TAB6 PO
== END ==
LOC: M ONCR 09:54
PROVIDERS: ATTEND General Practice
DX: C79.51 Secondary malignant neoplasm of bone (principal); C64.2 Malignant neoplasm of left kidney, except renal pelvis; G89.29 Other chronic pain; M54.9 Dorsalgia, unspecified; Z79.01 Long term (current) use of anticoagulants; Z79.69 Long term (current) use of other immunomodulators and immunosuppressants; Z79.899 Other long term (current) drug therapy; Z92.3 Personal history of irradiation

== ENCOUNTER → 2024-04-19 | Outpatient (CLI) | payer MEDICARE, BC ==
[~2024-04-19] MED LIST changes: +GASTROGRAFIN SOLUTION 30ML As Ordered ONE; +ISOVUE-370 76% 100ML VIAL As Ordered ONE
== END ==
LOC: M RAD 13:38
PROVIDERS: ATTEND Nurse Practitioner
DX: C64.2 Malignant neoplasm of left kidney, except renal pelvis (principal)
CPT/HCPCS: 71260; 74177; Q9963; Q9967

== ENCOUNTER → 2024-04-22 | Outpatient (CLI) | payer MEDICARE, BC ==
[~2024-04-22] MED LIST changes: -GASTROGRAFIN SOLUTION 30ML As Ordered ONE; -ISOVUE-370 76% 100ML VIAL As Ordered ONE
== END ==
LOC: M PLARAD 14:03
PROVIDERS: ATTEND Nurse Practitioner
DX: C64.9 Malignant neoplasm of unspecified kidney, except renal pelvis (principal)

== ENCOUNTER → 2024-07-05 | Outpatient (CLI) | payer MEDICARE, BC ==
[~2024-07-05] MED LIST changes: +GABA-1172 PO; -GABA-282 PO; +ISOVUE-370 76% 100ML VIAL As Ordered ONE
== END ==
LOC: M RAD 09:03
DX: C64.2 Malignant neoplasm of left kidney, except renal pelvis (principal)
CPT/HCPCS: 71260; 74177; Q9967

== ENCOUNTER → 2024-07-09 | Outpatient (REF) | payer MEDICARE, BC ==
[~2024-07-09] MED LIST changes: -ISOVUE-370 76% 100ML VIAL As Ordered ONE
== END ==
LOC: M LAB REF 19:03
PROVIDERS: ATTEND Physician Assistant
DX: N39.0 Urinary tract infection, site not specified (principal)

== ENCOUNTER → 2024-07-26 | Outpatient (CLI) | payer MEDICARE, BC ==
[~2024-07-26] MED LIST changes: +REGL5TAB2 PO
== END ==
LOC: M ONCR 07:52
PROVIDERS: ATTEND General Practice
DX: C64.2 Malignant neoplasm of left kidney, except renal pelvis (principal); C79.31 Secondary malignant neoplasm of brain; J30.9 Allergic rhinitis, unspecified; M54.9 Dorsalgia, unspecified; G89.29 Other chronic pain; Z79.61 Long term (current) use of immunomodulator; Z79.899 Other long term (current) drug therapy

== ENCOUNTER 2024-08-18 09:03 | Outpatient (RCR) | payer MEDICARE, BC | END 2024-09-02 | LOC: M ONCR 09:03 | PROVIDERS: ATTEND General Practice | DX: Z51.0 Encounter for antineoplastic radiation therapy (principal); C78.6 Secondary malignant neoplasm of retroperitoneum and peritoneum ==

== ENCOUNTER 2024-09-09 11:48 | Outpatient (RCR) | payer MEDICARE, BC ==
[2024-09-14] MEDS ORDERED: ONDA-282 PO (16:34)
== END 2024-09-30 ==
LOC: M ONCR 11:48
PROVIDERS: ATTEND General Practice
DX: Z51.0 Encounter for antineoplastic radiation therapy (principal); C78.6 Secondary malignant neoplasm of retroperitoneum and peritoneum

== ENCOUNTER 2024-09-15 10:47 | Day surgery (SDC) | payer MEDICARE, BC ==
[~2024-09-15] VITALS: Ht 165.1 cm; Wt 97.8 kg
[~2024-09-15 10:47] MED LIST changes: +LIDOCAINE 2% 100MG/5ML SDV (FOR ANES.) As Ordered ONE; +fentaNYL 100 MCG/2 ML INJECTION As Ordered ONE; +propofoL 200 MG/20 ML VIAL As Ordered ONE
[2024-09-15] MEDS ORDERED: GLYCOPYRROLATE INJ 0.2 MG/ML 2 ML VIAL As Ordered ONE (12:15)
[2024-09-15 13:15] VITALS: TEMP 97
[2024-09-15 13:35] VITALS: BP 116/78; O2SAT 95
== END 2024-09-15 13:37 | disposition home or self-care (01) ==
LOC: M OPP 10:47
PROVIDERS: ATTEND Internal Medicine Gastroenterology
DX: K64.8 Other hemorrhoids (principal); Q43.8 Other specified congenital malformations of intestine; R10.84 Generalized abdominal pain; R10.13 Epigastric pain; G47.30 Sleep apnea, unspecified; Z91.048 Other nonmedicinal substance allergy status; Z79.01 Long term (current) use of anticoagulants; Z79.891 Long term (current) use of opiate analgesic; Z79.899 Other long term (current) drug therapy; Z86.718 Personal history of other venous thrombosis and embolism
CPT/HCPCS: 43235; 45378; J1596; J3010

== ENCOUNTER → 2024-12-08 | Outpatient (CLI) | payer MEDICARE, BC ==
[~2024-12-08] MED LIST changes: -LIDOCAINE 2% 100MG/5ML SDV (FOR ANES.) As Ordered ONE; -fentaNYL 100 MCG/2 ML INJECTION As Ordered ONE; -propofoL 200 MG/20 ML VIAL As Ordered ONE
== END ==
LOC: M ONCR 08:46
PROVIDERS: ATTEND General Practice
DX: C79.51 Secondary malignant neoplasm of bone (principal); C78.6 Secondary malignant neoplasm of retroperitoneum and peritoneum; C64.2 Malignant neoplasm of left kidney, except renal pelvis; R11.0 Nausea; R53.83 Other fatigue; R63.8 Other symptoms and signs concerning food and fluid intake; Z79.622 Long term (current) use of Janus kinase inhibitor; Z79.01 Long term (current) use of anticoagulants; Z79.51 Long term (current) use of inhaled steroids; Z79.890 Hormone replacement therapy; Z79.899 Other long term (current) drug therapy; J30.2 Other seasonal allergic rhinitis

== ENCOUNTER → 2025-03-10 | Outpatient (CLI) | payer MEDICARE, BC ==
[~2025-03-10] MED LIST changes: +DIVA-41 PO; -DIVA500T94 PO; -PRAV20TA2 PO; +PRAV20TA78 PO
== END ==
LOC: M ONCR 08:52
PROVIDERS: ATTEND General Practice
DX: C64.2 Malignant neoplasm of left kidney, except renal pelvis (principal); C78.6 Secondary malignant neoplasm of retroperitoneum and peritoneum; C79.51 Secondary malignant neoplasm of bone; Z79.01 Long term (current) use of anticoagulants; Z79.899 Other long term (current) drug therapy; Z92.21 Personal history of antineoplastic chemotherapy

== ENCOUNTER 2025-03-28 10:53 | Outpatient (RCR) | payer MEDICARE, BC | END 2025-04-02 | LOC: M ONCR 10:53 | PROVIDERS: ATTEND General Practice | DX: Z51.0 Encounter for antineoplastic radiation therapy (principal); C78.6 Secondary malignant neoplasm of retroperitoneum and peritoneum ==

== ENCOUNTER → 2025-04-17 | Outpatient (CLI) | payer MEDICARE, BC | LOC: M RAD 09:51 | DX: C64.2 Malignant neoplasm of left kidney, except renal pelvis (principal) ==

== ENCOUNTER 2025-04-25 10:13 | Outpatient (RCR) | payer MEDICARE, BC ==
[2025-04-25] MEDS ORDERED: DEXA1TA PO (10:53)
[2025-04-25] MEDS ORDERED: DEXA2TA PO (10:53)
[2025-04-28] MEDS ORDERED: OLAN1TAB16 PO (15:12)
[2025-04-30] MEDS ORDERED: LOSA25TA13 (22:48)
[2025-04-30] MEDS ORDERED: LEVO137T2 (22:48)
[2025-05-01] MEDS ORDERED: LORA1TAB23 PO (09:50)
[2025-05-04] MEDS ORDERED: DIPH1TAB81 PO (09:32)
== END 2025-05-02 ==
LOC: M ONCR 10:13
PROVIDERS: ATTEND General Practice
DX: Z51.0 Encounter for antineoplastic radiation therapy (principal); C78.6 Secondary malignant neoplasm of retroperitoneum and peritoneum

== ENCOUNTER → 2025-04-28 | Outpatient (CLI) | payer MEDICARE, BC ==
[~2025-04-28] MED LIST changes: +ATEN25TA PO; +ATIV1TAB7 PO; +CABO20TA PO; +CITA10TA7 PO; +DEXA1TA PO; +DEXA2TA PO; +DIPH1TAB81 PO; +DIPH50CA31 PO; +LEVO137T2 PO; +LORA1TAB23 PO; +LOSA25TA13; +LOSA25TA13 PO; +MAGN400T33 PO; +METH-1164; +METO10TA2 PO; +METO10TA3; +MORP10SO21 SL; +MORP1SOL4 PO; +MULTTAB61 PO; +MUPI2OI; +OLAN1TAB16 PO; +OMEP-173 PO; +ONDA-84 PO; +OXYC-517 PO; +PRED50TA57 PO; +VALG450T10 PO
[2025-04-28] MEDS: NS (Normal Saline) 0.9% 1,000 ML IV ONE (14:10)
[2025-04-28] MEDS: SODIUM CHLORIDE 0.9% INJ 10 ML SYR IV PRN (15:00)
== END ==
LOC: M ONCR 14:05
PROVIDERS: ATTEND General Practice
DX: C78.6 Secondary malignant neoplasm of retroperitoneum and peritoneum (principal)

== ENCOUNTER 2025-04-30 22:32 | Emergency (ER) | payer MEDICARE, BC ==
[~2025-04-30] VITALS: Ht 165.1 cm; Wt 81.5 kg
[~2025-04-30 22:32] MED LIST changes: -ATEN25TA PO; -ATIV1TAB7 PO; -CABO20TA; -CITA10TA7 PO; -DIPH1TAB81 PO; -DIPH50CA31 PO; -LEVO137T2 PO; -LORA1TAB23 PO; -LOSA25TA13; -LOSA25TA13 PO; -MAGN400T33 PO; -METH-1164; -METO10TA2 PO; -METO10TA3; -MORP10SO21 SL; -MORP1SOL4 PO; -MULTTAB61 PO; -MUPI2OI; -OMEP-173 PO; -ONDA-84 PO; -OXYC-517 PO; -PRED50TA57 PO; -VALG450T10 PO
[2025-04-30] MEDS ORDERED: LOSA25TA13 (22:48)
[2025-04-30] MEDS ORDERED: LEVO137T2 PO (22:48)
[2025-05-01 00:42] LABS: BASO # 0.0 10^3/uL (0.0-0.2); BASO % 0.2 % (0.0-1.0); EOS # 0.2 10^3/uL (0.0-0.5); EOS % 3.8 % (0.0-3.0); LYMPH # 0.2 10^3/uL (1.5-5.0); LYMPH % 5.3 % (24.0-44.0); MONO # 0.7 10^3/uL (0.0-0.8); MONO % 16.4 % (2.0-8.0); NEUTROPHILS # 3.3 10^3/uL (1.5-8.5); NEUTROPHILS % 73.6 % (36.0-66.0); PLATELET COUNT, AUTOMATED 202 10^3/uL (150-450)
[2025-05-01] MEDS: NS (Normal Saline) 0.9% 1,000 ML IV ONE (00:42)
[2025-05-01] MEDS: ONDANSETRON 4MG/2ML VIAL IV ONE (00:43)
[2025-05-01 01:11] LABS: CK-MB VALUE MASS < 1.0 NG/ML (<3.6)
[2025-05-01 01:12] LABS: ALT/SGPT 19 U/L (7.0-40); AST/SGOT 16 U/L (<34); CALCIUM LEVEL 8.5 MG/DL (8.3-10.6); CARBON DIOXIDE LEVEL 26 MMOL/L (20-31); CHLORIDE LEVEL 96 MMOL/L (98-107); CPK CREATINE PHOSPHOKINASE 30 U/L (46-171); CREATININE FOR GFR 1.13 MG/DL (0.70-1.30); GLOMERULAR FILTRATION RATE 70.4 (>49); POTASSIUM SERUM 3.8 MMOL/L (3.5-5.1); SODIUM LEVEL 129 MMOL/L (136-145)
[2025-05-01 02:10] LABS: CK-MB VALUE MASS < 1.0 NG/ML (<3.6)
[2025-05-01 02:13] LABS: CPK CREATINE PHOSPHOKINASE 23 U/L (46-171)
[2025-05-01 03:11] LABS: KETONE, URINE AUTO RFX TRACE mg/dL (NEGATIVE); LEUKOCYTE ESTERASE UR AUTO RFX NEGATIVE (NEGATIVE); NITRITE, URINE AUTO RFX NEGATIVE (NEGATIVE); RBC, URINE AUTO RFX 0 /HPF (0-3); SQUAM EPITHELIAL CELL UR AURFX 0 /HPF (0-6); WBC, URINE AUTO RFX 1 /HPF (0-3)
[2025-05-01] MEDS: diphenhydrAMINE 50 MG/ML VIAL IV ONE (04:50)
[2025-05-01] MEDS: KETOROLAC 30 MG/ML 1 ML VIAL IV ONE (04:50)
[2025-05-01] MEDS ORDERED: ISOVUE-370 76% 100 ML VIAL As Ordered ONE (05:06)
[2025-05-01 09:22] VITALS: BP 113/69; TEMP 97.5; O2SAT 97
[2025-05-01] MEDS ORDERED: LORA1TAB23 PO (09:50)
[2025-05-04] MEDS ORDERED: DIPH1TAB81 PO (09:32)
[2025-05-05] MEDS ORDERED: ATIV1TAB7 PO (17:26)
[2025-05-15] MEDS ORDERED: DIPH1TAB81 PO (08:24)
[2025-05-25] MEDS ORDERED: LORA1TAB23 PO ×2 (07:37)
[2025-06-02] MEDS ORDERED: CABO20TA (09:37)
[2025-06-02] MEDS ORDERED: METO10TA3 (09:37)
[2025-06-02] MEDS ORDERED: MUPI2OI (09:37)
[2025-06-02] MEDS ORDERED: METH-1164 (09:37)
[2025-06-02] MEDS ORDERED: CABO20TA PO (14:57)
== END 2025-05-01 10:05 | disposition home or self-care (01) ==
LOC: M ED 22:32
DX: Z51.0 Encounter for antineoplastic radiation therapy (principal); R11.2 Nausea with vomiting, unspecified; K76.0 Fatty (change of) liver, not elsewhere classified; E03.9 Hypothyroidism, unspecified; Z88.8 Allergy status to other drugs, medicaments and biological substances; Z91.09 Other allergy status, other than to drugs and biological substances; Z91.041 Radiographic dye allergy status; Z79.01 Long term (current) use of anticoagulants; Z79.899 Other long term (current) drug therapy
CPT/HCPCS: 71260; 74177; 80048; 80076; 81001; 82550; 82553; 83605; 83690; 84484; 85025; 87486; 87581; 87633; 87798; 93005; 93041; 96361; 96374; 96375; 99285; J1200; J1885; J2405; J2919; Q9967

== ENCOUNTER 2025-05-02 12:47 | Outpatient (CLI) | payer MEDICARE, BC ==
[~2025-05-02] VITALS: Ht 165.1 cm; Wt 81.8 kg
[~2025-05-02 12:47] MED LIST changes: +LEVO137T2 PO; +LORA1TAB23 PO; +LOSA25TA13
[2025-05-02 13:05] VITALS: BP 101/68; O2SAT 100
[2025-05-02] MEDS: NS (Normal Saline) 0.9% 1,000 ML IV SCH (13:14)
[2025-05-02] MEDS: ONDANSETRON 4MG 2ML VIAL IV ONE (13:15)
[2025-05-02 14:34] VITALS: BP 96/65; O2SAT 100
[2025-05-04] MEDS ORDERED: DIPH1TAB81 PO (09:32)
[2025-05-05] MEDS ORDERED: ATIV1TAB7 PO (17:26)
[2025-05-15] MEDS ORDERED: DIPH1TAB81 PO (08:24)
== END 2025-05-02 14:35 ==
LOC: M INFU 12:47
PROVIDERS: ATTEND Nurse Practitioner Family
DX: C64.9 Malignant neoplasm of unspecified kidney, except renal pelvis (principal); R11.0 Nausea; Z88.8 Allergy status to other drugs, medicaments and biological substances; Z91.09 Other allergy status, other than to drugs and biological substances; Z91.041 Radiographic dye allergy status
CPT/HCPCS: 96360; J2405

== ENCOUNTER 2025-05-07 17:06 | Inpatient (IN) | payer MEDICARE, BC ==
[~2025-05-07] VITALS: Ht 165.1 cm; Wt 84.5 kg
[~2025-05-07 17:06] MED LIST changes: +ATIV1TAB7 PO; +DIPH1TAB81 PO
[2025-05-07] MEDS: LIDOCAINE 2% 5 ML JELLY UROJET TOP ONE ×2 (17:30→18:40)
[2025-05-07 18:01] LABS: PLATELET COUNT, AUTOMATED 158 10^3/uL (150-450)
[2025-05-07 18:18] LABS: INR 1.74
[2025-05-07 18:28] LABS: ALT/SGPT 12 U/L (7.0-40); AST/SGOT 11 U/L (<34); CALCIUM LEVEL 7.9 MG/DL (8.3-10.6); CARBON DIOXIDE LEVEL 27 MMOL/L (20-31); CHLORIDE LEVEL 95 MMOL/L (98-107); CREATININE FOR GFR 1.24 MG/DL (0.70-1.30); GLOMERULAR FILTRATION RATE 62.9 (>49); POTASSIUM SERUM 3.7 MMOL/L (3.5-5.1); SODIUM LEVEL 131 MMOL/L (136-145)
[2025-05-07 18:33] LABS: ATYPICAL LYMPH 6 % (0-5); EOSINOPHILS 1 % (0-3); LYMPHOCYTES 12 % (16-44); METAMYELOCYTES 1 % (0-0); MONOCYTES 13 % (0-5); NEUTROPHILS 47 % (28-66)
[2025-05-07 18:35] LABS: PLATELET ESTIMATE DECREASED (NORMAL)
[2025-05-07 19:12] LABS: KETONE, URINE AUTO RFX NEGATIVE (NEGATIVE); LEUKOCYTE ESTERASE UR AUTO RFX NEGATIVE (NEGATIVE); MAGNESIUM LEVEL 1.8 MG/DL (1.8-2.4); MUCUS, URINE RFX SMALL (NEGATIVE); NITRITE, URINE AUTO RFX NEGATIVE (NEGATIVE); RBC, URINE AUTO RFX 1 /HPF (0-3); SQUAM EPITHELIAL CELL UR AURFX 1 /HPF (0-6); WBC, URINE AUTO RFX 2 /HPF (0-3)
[2025-05-07 19:17] LABS: FREE T4 0.97 NG/DL (0.89-1.76)
[2025-05-07 19:28] LABS: CK-MB VALUE MASS < 1.0 NG/ML (<3.6)
[2025-05-07 19:30] LABS: CPK CREATINE PHOSPHOKINASE 19 U/L (46-171)
[2025-05-07] MEDS: NS (Normal Saline) 0.9% 1,000 ML IV ONE (20:14)
[2025-05-07] MEDS: PIPERACILLIN/TAZOBACTAM SOD 4.5 GM in DEXTROSE 5% (D5W) ADV/MINI-BAG 50 ML IV ONE (20:14)
[2025-05-07 20:48] LABS: CK-MB VALUE MASS < 1.0 NG/ML (<3.6)
[2025-05-07 20:49] LABS: CPK CREATINE PHOSPHOKINASE 18 U/L (46-171)
[2025-05-07] MEDS ORDERED: ACETAMINOPHEN 325 MG TAB PO PRN (22:55)
[2025-05-07] MEDS ORDERED: ONDANSETRON 4MG 2ML VIAL IV PRN (23:15)
[2025-05-07] MEDS: LR 1,000 ML IV SCH (23:38)
[2025-05-08] VITALS (7 sets, daily range): BP systolic 87–102; BP diastolic 57–67; TEMP 96.8–98.2; O2SAT 93–97
[2025-05-08 00:20] LABS: C REACTIVE PROTEIN QUANTITATIV 5.43 MG/DL (<1.0)
[2025-05-08 00:47] LABS: HIV 1&2 SCREEN NEGATIVE (NEGATIVE)
[2025-05-08 00:56] LABS: HEPATITIS C VIRUS ABY INDEX < 0.02 INDEX (<0.8)
[2025-05-08 01:56] LABS: PLATELET COUNT, AUTOMATED 148 10^3/uL (150-450)
[2025-05-08 02:11] LABS: ERYTHROCYTE SEDIMENTATION RATE 29 mm/hr (0-20)
[2025-05-08] MEDS: PIPERACILLIN/TAZOBACTAM SOD 3.375 GM in DEXTROSE 5% (D5W) ADV/MINI-BAG 50 ML IV SCH (02:52)
[2025-05-08] MEDS: LEVOTHYROXINE 137 MCG TABLET (0.137 MG) PO SCH (05:24)
[2025-05-08 06:51] LABS: PLATELET COUNT, AUTOMATED 135 10^3/uL (150-450)
[2025-05-08 07:27] LABS: ALT/SGPT 13.0 U/L (7.0-40); AST/SGOT 11.0 U/L (<34); CALCIUM LEVEL 7.7 MG/DL (8.3-10.6); CARBON DIOXIDE LEVEL 26.0 MMOL/L (20-31); CHLORIDE LEVEL 95.0 MMOL/L (98-107); CREATININE FOR GFR 1.27 MG/DL (0.70-1.30); GLOMERULAR FILTRATION RATE 61.2 (>49); POTASSIUM SERUM 4.0 MMOL/L (3.5-5.1); SODIUM LEVEL 131.0 MMOL/L (136-145)
[2025-05-08] MEDS: LORazepam 1 MG TAB PO SCH (08:51)
[2025-05-08] MEDS ORDERED: HYDR-3490 PO (10:02)
[2025-05-08] MEDS ORDERED: ATIV1TAB7 PO (10:02)
[2025-05-08] MEDS ORDERED: DIPH1TAB81 PO (10:02)
[2025-05-08] MEDS ORDERED: LOSA25TA13 PO (10:02)
[2025-05-08] MEDS ORDERED: MULTTAB61 PO (10:02)
[2025-05-08] MEDS ORDERED: ATEN25TA PO (10:02)
[2025-05-08] MEDS ORDERED: ONDA-84 PO (10:02)
[2025-05-08] MEDS ORDERED: HOME MED LIST COMPLETE! XX SCH (10:05)
[2025-05-08 13:08] LABS: PLATELET COUNT, AUTOMATED 137 10^3/uL (150-450)
[2025-05-08] MEDS ORDERED: LIDOCAINE 2% 100 MG/5 ML SDV (FOR ANES.) As Ordered ONE (14:00)
[2025-05-08 18:23] LABS: PLATELET COUNT, AUTOMATED 139 10^3/uL (150-450)
[2025-05-08] MEDS: RAMELTEON 8 MG TAB PO PRN (20:33)
[2025-05-08] MEDS: POLYVINYL ALCOHOL OPHTH SOLN 15ML (LIQUITEARS) OU PRN (20:51)
[2025-05-09] VITALS: BP 89/62; TEMP 97.1; O2SAT 93
[2025-05-09 00:33] LABS: PLATELET COUNT, AUTOMATED 142 10^3/uL (150-450)
[2025-05-09 03:37] VITALS: BP 111/68; TEMP 97.5; O2SAT 99
[2025-05-09 06:47] LABS: PLATELET COUNT, AUTOMATED 157 10^3/uL (150-450)
[2025-05-09 07:23] LABS: ALT/SGPT 12.0 U/L (7.0-40); AST/SGOT 11.0 U/L (<34); CALCIUM LEVEL 7.7 MG/DL (8.3-10.6); CARBON DIOXIDE LEVEL 25.0 MMOL/L (20-31); CHLORIDE LEVEL 100.0 MMOL/L (98-107); CREATININE FOR GFR 1.21 MG/DL (0.70-1.30); GLOMERULAR FILTRATION RATE 64.8 (>49); POTASSIUM SERUM 3.7 MMOL/L (3.5-5.1); SODIUM LEVEL 135.0 MMOL/L (136-145)
[2025-05-09 07:42] VITALS: BP 91/59; TEMP 96.8; O2SAT 95
[2025-05-09] MEDS ORDERED: LOPERAMIDE 2 MG CAPLET PO PRN (12:20)
[2025-05-09] MEDS: NS 500 ML IV ONE (12:34)
[2025-05-09] MEDS ORDERED: ATIV1TAB7 PO (12:45)
[2025-05-09] MEDS: FLUZONE HIGH DOSE (65+) 0.5 ML SYRINGE (25-26) IM.IMMUN ONE (14:45)
[2025-05-12 15:43] LABS: IGASUB2 208 mg/dL (46-378); IGASUB3 27 mg/dL (13-91); IgA SERUM (part of Subclasses) 256 mg/dL (70-320)
[2025-05-15] MEDS ORDERED: DIPH1TAB81 PO (08:24)
== END 2025-05-09 14:50 | disposition home or self-care (01) | DRG 391 ==
LOC: M ED 17:06 → M ED INP 22:53 → M PCU 05-08 00:36
PROVIDERS: ADMIT Student in an Organized Health Care Education/Training Program; ATTEND Student in an Organized Health Care Education/Training Program
PROC: 0DBM8ZX Excision of Descending Colon, Via Natural or Artificial Opening Endoscopic, Diagnostic (ICD-10-PCS; principal; 2025-05-08 17:30)
DX: A08.32 Astrovirus enteritis (principal); G93.41 Metabolic encephalopathy; D62 Acute posthemorrhagic anemia; C79.51 Secondary malignant neoplasm of bone; C64.2 Malignant neoplasm of left kidney, except renal pelvis; K52.0 Gastroenteritis and colitis due to radiation; D70.9 Neutropenia, unspecified; E03.9 Hypothyroidism, unspecified; E78.5 Hyperlipidemia, unspecified; Z92.3 Personal history of irradiation; I10 Essential (primary) hypertension; R53.81 Other malaise; G89.3 Neoplasm related pain (acute) (chronic); R53.1 Weakness; I95.89 Other hypotension; Z79.01 Long term (current) use of anticoagulants; Z79.69 Long term (current) use of other immunomodulators and immunosuppressants; Z79.899 Other long term (current) drug therapy; Z86.718 Personal history of other venous thrombosis and embolism; Z88.8 Allergy status to other drugs, medicaments and biological substances; Z91.041 Radiographic dye allergy status

== ENCOUNTER → 2025-05-22 | Outpatient (REF) | payer MEDICARE, BC ==
[~2025-05-22] MED LIST changes: +ATEN25TA PO; +LOSA25TA13 PO; +MULTTAB61 PO; +ONDA-84 PO
[2025-05-22 12:42] LABS: BASO # 0.0 10^3/uL (0.0-0.2); BASO % 0.6 % (0.0-1.0); EOS # 0.1 10^3/uL (0.0-0.5); EOS % 1.6 % (0.0-3.0); LYMPH # 0.4 10^3/uL (1.5-5.0); LYMPH % 7.5 % (24.0-44.0); MONO # 0.5 10^3/uL (0.0-0.8); MONO % 10.4 % (2.0-8.0); NEUTROPHILS # 4.0 10^3/uL (1.5-8.5); NEUTROPHILS % 79.5 % (36.0-66.0); PLATELET COUNT, AUTOMATED 216 10^3/uL (150-450)
[2025-05-22 13:44] LABS: FREE T4 0.88 NG/DL (0.89-1.76)
== END ==
LOC: M LAB REF 12:06
DX: C64.2 Malignant neoplasm of left kidney, except renal pelvis (principal); E03.2 Hypothyroidism due to medicaments and other exogenous substances

== ENCOUNTER → 2025-05-24 | Outpatient (CLI) | payer MEDICARE, BC | LOC: M RAD 08:48 | PROVIDERS: ATTEND Nurse Practitioner Family | DX: C64.2 Malignant neoplasm of left kidney, except renal pelvis (principal); R10.84 Generalized abdominal pain; R93.3 Abnormal findings on diagnostic imaging of other parts of digestive tract ==

== ENCOUNTER → 2025-06-07 | Outpatient (CLI) | payer MEDICARE, BC ==
[~2025-06-07] VITALS: Ht 165.1 cm; Wt 89.0 kg
[~2025-06-07] MED LIST changes: +CABO20TA; +CITA10TA7 PO; +METH-1164; +METO10TA3; +MUPI2OI; +OXYC-517 PO
[2025-06-07 15:09] VITALS: BP 143/97; O2SAT 95
== END ==
LOC: M PAL 14:48
PROVIDERS: ATTEND Physician Assistant
DX: Z51.5 Encounter for palliative care (principal); C64.9 Malignant neoplasm of unspecified kidney, except renal pelvis; C79.51 Secondary malignant neoplasm of bone; Z79.891 Long term (current) use of opiate analgesic; E03.9 Hypothyroidism, unspecified; R52 Pain, unspecified; Z91.041 Radiographic dye allergy status; Z91.048 Other nonmedicinal substance allergy status; Z88.6 Allergy status to analgesic agent

== ENCOUNTER 2025-06-09 09:33 | Emergency (ER) | payer MEDICARE, BC ==
[~2025-06-09] VITALS: Ht 165.1 cm; Wt 89.0 kg
[2025-06-09 10:17] LABS: BASO # 0.0 10^3/uL (0.0-0.2); BASO % 0.3 % (0.0-1.0); EOS # 0.2 10^3/uL (0.0-0.5); EOS % 1.7 % (0.0-3.0); LYMPH # 0.6 10^3/uL (1.5-5.0); LYMPH % 5.4 % (24.0-44.0); MONO # 1.1 10^3/uL (0.0-0.8); MONO % 10.0 % (2.0-8.0); NEUTROPHILS # 8.9 10^3/uL (1.5-8.5); NEUTROPHILS % 82.2 % (36.0-66.0); PLATELET COUNT, AUTOMATED 264 10^3/uL (150-450)
[2025-06-09 10:56] LABS: ALT/SGPT 24.0 U/L (7.0-40); AST/SGOT 58.0 U/L (<34); CALCIUM LEVEL 6.9 MG/DL (8.3-10.6); CARBON DIOXIDE LEVEL 25.0 MMOL/L (20-31); CHLORIDE LEVEL 101.0 MMOL/L (98-107); CREATININE FOR GFR 0.96 MG/DL (0.70-1.30); GLOMERULAR FILTRATION RATE 85.6 (>49); POTASSIUM SERUM 4.9 MMOL/L (3.5-5.1); SODIUM LEVEL 136.0 MMOL/L (136-145)
[2025-06-09 11:44] LABS: FREE T4 0.88 NG/DL (0.89-1.76)
[2025-06-09 11:46] VITALS: TEMP 99
[2025-06-09 11:47] VITALS: BP 100/74
[2025-06-09 11:48] VITALS: O2SAT 96
== END 2025-06-09 11:53 | disposition home or self-care (01) ==
LOC: M ED 09:33
DX: S06.0X0A Concussion without loss of consciousness, initial encounter (principal); E03.9 Hypothyroidism, unspecified; Y92.9 Unspecified place or not applicable; Y93.9 Activity, unspecified; Y99.9 Unspecified external cause status; W01.0XXA Fall on same level from slipping, tripping and stumbling without subsequent striking against object, initial encounter; M50.30 Other cervical disc degeneration, unspecified cervical region; R94.31 Abnormal electrocardiogram [ECG] [EKG]; G47.33 Obstructive sleep apnea (adult) (pediatric); Z79.01 Long term (current) use of anticoagulants; Z79.899 Other long term (current) drug therapy; Z79.810 Long term (current) use of selective estrogen receptor modulators (SERMs); Z88.8 Allergy status to other drugs, medicaments and biological substances; Z91.09 Other allergy status, other than to drugs and biological substances; Z91.041 Radiographic dye allergy status

== ENCOUNTER → 2025-06-12 | Outpatient (CLI) | payer MEDICARE, BC ==
[~2025-06-12] MED LIST changes: +DIPH50CA31 PO; +MAGN400T33 PO; +OMEP-173 PO; +PRED50TA57 PO
== END ==
LOC: M SLEEP HO 10:48
PROVIDERS: ATTEND Nurse Practitioner Adult Health
DX: G47.33 Obstructive sleep apnea (adult) (pediatric) (principal)

== ENCOUNTER 2025-06-15 10:29 | Inpatient (IN) | payer MEDICARE, BC ==
[~2025-06-15] VITALS: Ht 162.6 cm; Wt 86.7 kg
[~2025-06-15 10:29] MED LIST changes: -DIPH50CA31 PO; -MAGN400T33 PO; -OMEP-173 PO; -PRED50TA57 PO
[2025-06-15 12:32] LABS: BASO # 0.0 10^3/uL (0.0-0.2); BASO % 0.4 % (0.0-1.0); EOS # 0.1 10^3/uL (0.0-0.5); EOS % 1.6 % (0.0-3.0); LYMPH # 0.5 10^3/uL (1.5-5.0); LYMPH % 5.1 % (24.0-44.0); MONO # 0.8 10^3/uL (0.0-0.8); MONO % 8.7 % (2.0-8.0); NEUTROPHILS # 7.5 10^3/uL (1.5-8.5); NEUTROPHILS % 84.0 % (36.0-66.0); PLATELET COUNT, AUTOMATED 290 10^3/uL (150-450)
[2025-06-15 13:02] LABS: ALT/SGPT 25.0 U/L (7.0-40); AST/SGOT 33.0 U/L (<34); CALCIUM LEVEL 7.2 MG/DL (8.3-10.6); CARBON DIOXIDE LEVEL 26.0 MMOL/L (20-31); CHLORIDE LEVEL 100.0 MMOL/L (98-107); CREATININE FOR GFR 1.04 MG/DL (0.70-1.30); GLOMERULAR FILTRATION RATE 77.7 (>49); POTASSIUM SERUM 4.2 MMOL/L (3.5-5.1); SODIUM LEVEL 135.0 MMOL/L (136-145)
[2025-06-15 13:03] LABS: INR 1.35
[2025-06-15] MEDS ORDERED: MAGN400T33 PO (13:09)
[2025-06-15] MEDS ORDERED: OMEP-173 PO (13:09)
[2025-06-15] MEDS ORDERED: HOME MED LIST COMPLETE! XX SCH (13:10)
[2025-06-15] MEDS ORDERED: READI-CAT 2 PO SCH (15:20)
[2025-06-15] MEDS: READI-CAT 2 PO SCH (15:29)
[2025-06-15] MEDS: NS (Normal Saline) 0.9% 1,000 ML IV ONE (15:29)
[2025-06-15] MEDS: HEPARIN LOCK FLUSH 100 UNITS/ML 3 ML SYRINGE IV PRN (18:40)
[2025-06-15] MEDS: SODIUM CHLORIDE 0.9% INJ 10 ML SYR IV PRN (18:40)
[2025-06-15 19:04] LABS: KETONE, URINE AUTO RFX TRACE mg/dL (NEGATIVE); LEUKOCYTE ESTERASE UR AUTO RFX NEGATIVE (NEGATIVE); MUCUS, URINE RFX SMALL (NEGATIVE); NITRITE, URINE AUTO RFX NEGATIVE (NEGATIVE); RBC, URINE AUTO RFX 5 /HPF (0-3); SQUAM EPITHELIAL CELL UR AURFX 0 /HPF (0-6); WBC, URINE AUTO RFX 3 /HPF (0-3)
[2025-06-15] MEDS: PANTOPRAZOLE 40MG VIAL IV ONE (20:29)
[2025-06-15] MEDS ORDERED: PILL CUTTER 1 EACH XX ONE (21:32)
[2025-06-15] MEDS: ACETAMINOPHEN 500 MG TAB PO SCH (21:38)
[2025-06-15] MEDS: SUCRALFATE SUSP 1GM/10ML UD PO SCH (21:38)
[2025-06-15 22:42] VITALS: BP 112/81; TEMP 96.7; O2SAT 95
[2025-06-16] MEDS: LEVOTHYROXINE 137 MCG TABLET (0.137 MG) PO SCH (05:16)
[2025-06-16 06:28] LABS: BASO # 0.0 10^3/uL (0.0-0.2); BASO % 0.4 % (0.0-1.0); EOS # 0.4 10^3/uL (0.0-0.5); EOS % 5.0 % (0.0-3.0); LYMPH # 0.6 10^3/uL (1.5-5.0); LYMPH % 7.9 % (24.0-44.0); MONO # 0.8 10^3/uL (0.0-0.8); MONO % 9.9 % (2.0-8.0); NEUTROPHILS # 5.8 10^3/uL (1.5-8.5); NEUTROPHILS % 76.1 % (36.0-66.0); PLATELET COUNT, AUTOMATED 298 10^3/uL (150-450)
[2025-06-16 06:51] LABS: CALCIUM LEVEL 6.9 MG/DL (8.3-10.6); CARBON DIOXIDE LEVEL 29.0 MMOL/L (20-31); CHLORIDE LEVEL 98.0 MMOL/L (98-107); CREATININE FOR GFR 1.05 MG/DL (0.70-1.30); GLOMERULAR FILTRATION RATE 76.8 (>49); POTASSIUM SERUM 4.2 MMOL/L (3.5-5.1); SODIUM LEVEL 134.0 MMOL/L (136-145)
[2025-06-16 06:56] LABS: FREE T4 0.72 NG/DL (0.89-1.76)
[2025-06-16 07:56] VITALS: BP 119/82; TEMP 97.1; O2SAT 96
[2025-06-16] MEDS ORDERED: DIPH50CA31 PO (08:56)
[2025-06-16] MEDS ORDERED: PRED50TA57 PO (08:56)
[2025-06-16] MEDS: PANTOPRAZOLE 40MG VIAL IV SCH (09:17)
[2025-06-16] MEDS: ENOXAPARIN 40 MG/0.4 ML SYRINGE (J1650 PER 10MG) SC SCH (09:17)
[2025-06-16 09:45] VITALS: BP 119/83
[2025-06-16] MEDS: TORSEMIDE 20 MG TAB PO SCH (09:48)
[2025-06-16 10:35] VITALS: BP 117/80; TEMP 98; O2SAT 96
[2025-06-16 11:00] VITALS: BP_SYST 114; BP_SYST 117; BP_SYST 99; BP_DIAS 74; BP_DIAS 80; BP_DIAS 81
[2025-06-16 12:00] VITALS: BP 121/88; TEMP 97.1; O2SAT 97
[2025-06-16 19:54] VITALS: BP 117/84; TEMP 97.7; O2SAT 94
[2025-06-16] MEDS: ONDANSETRON 4MG/2ML VIAL IV PRN (20:30)
[2025-06-17 03:16] VITALS: BP 122/86; TEMP 98.2; O2SAT 93
[2025-06-17 03:18] VITALS: BP_SYST 121; BP_SYST 122; BP_SYST 97; BP_DIAS 67; BP_DIAS 81; BP_DIAS 86
[2025-06-17 05:48] LABS: BASO # 0.1 10^3/uL (0.0-0.2); BASO % 0.6 % (0.0-1.0); EOS # 0.4 10^3/uL (0.0-0.5); EOS % 4.6 % (0.0-3.0); LYMPH # 0.4 10^3/uL (1.5-5.0); LYMPH % 5.1 % (24.0-44.0); MONO # 0.7 10^3/uL (0.0-0.8); MONO % 8.2 % (2.0-8.0); NEUTROPHILS # 6.6 10^3/uL (1.5-8.5); NEUTROPHILS % 81.0 % (36.0-66.0); PLATELET COUNT, AUTOMATED 312 10^3/uL (150-450)
[2025-06-17 06:12] LABS: CALCIUM LEVEL 6.9 MG/DL (8.3-10.6); CARBON DIOXIDE LEVEL 27.0 MMOL/L (20-31); CHLORIDE LEVEL 99.0 MMOL/L (98-107); CREATININE FOR GFR 1.14 MG/DL (0.70-1.30); GLOMERULAR FILTRATION RATE 69.6 (>49); POTASSIUM SERUM 3.7 MMOL/L (3.5-5.1); SODIUM LEVEL 134.0 MMOL/L (136-145)
[2025-06-17] MEDS: MORPHINE 4 MG/ML 1 ML VIAL IV PRN (08:48)
[2025-06-17 12:00] VITALS: BP 111/77; TEMP 98.2; O2SAT 94
[2025-06-17 20:09] VITALS: BP 112/79; TEMP 98; O2SAT 92
[2025-06-18 04:05] VITALS: BP 122/87; TEMP 98.3; O2SAT 94
[2025-06-18] MEDS: LEVOTHYROXINE 150 MCG TABLET (0.15 MG) PO SCH (06:01)
[2025-06-18 06:19] LABS: BASO # 0.0 10^3/uL (0.0-0.2); BASO % 0.2 % (0.0-1.0); EOS # 0.2 10^3/uL (0.0-0.5); EOS % 2.6 % (0.0-3.0); LYMPH # 0.5 10^3/uL (1.5-5.0); LYMPH % 6.5 % (24.0-44.0); MONO # 0.7 10^3/uL (0.0-0.8); MONO % 9.1 % (2.0-8.0); NEUTROPHILS # 6.5 10^3/uL (1.5-8.5); NEUTROPHILS % 81.1 % (36.0-66.0); PLATELET COUNT, AUTOMATED 331 10^3/uL (150-450)
[2025-06-18 06:52] LABS: CALCIUM LEVEL 7.3 MG/DL (8.3-10.6); CARBON DIOXIDE LEVEL 27.0 MMOL/L (20-31); CHLORIDE LEVEL 98.0 MMOL/L (98-107); CREATININE FOR GFR 1.22 MG/DL (0.70-1.30); GLOMERULAR FILTRATION RATE 64.2 (>49); POTASSIUM SERUM 3.8 MMOL/L (3.5-5.1); SODIUM LEVEL 135.0 MMOL/L (136-145)
[2025-06-18] MEDS: diphenhydrAMINE 50 MG/ML VIAL IV PRN (08:52)
[2025-06-18] MEDS: MORPHINE 4 MG/ML 1 ML VIAL IV PRN (09:16)
[2025-06-18] MEDS ORDERED: ISOVUE-370 76% 100 ML VIAL As Ordered ONE (09:32)
[2025-06-18 12:00] VITALS: BP 110/80; TEMP 97.6; O2SAT 92
[2025-06-18 20:00] VITALS: BP 122/84; TEMP 99.3; O2SAT 90
[2025-06-19 02:40] VITALS: BP 136/81; TEMP 98; O2SAT 92
[2025-06-19 06:11] LABS: BASO # 0.0 10^3/uL (0.0-0.2); BASO % 0.1 % (0.0-1.0); EOS # 0.0 10^3/uL (0.0-0.5); EOS % 0.0 % (0.0-3.0); LYMPH # 0.7 10^3/uL (1.5-5.0); LYMPH % 7.2 % (24.0-44.0); MONO # 0.8 10^3/uL (0.0-0.8); MONO % 9.0 % (2.0-8.0); NEUTROPHILS # 7.8 10^3/uL (1.5-8.5); NEUTROPHILS % 83.2 % (36.0-66.0); PLATELET COUNT, AUTOMATED 366 10^3/uL (150-450)
[2025-06-19 06:24] LABS: CALCIUM LEVEL 7.4 MG/DL (8.3-10.6); CARBON DIOXIDE LEVEL 28.0 MMOL/L (20-31); CHLORIDE LEVEL 96.0 MMOL/L (98-107); CREATININE FOR GFR 1.33 MG/DL (0.70-1.30); GLOMERULAR FILTRATION RATE 57.9 (>49); POTASSIUM SERUM 4.1 MMOL/L (3.5-5.1); SODIUM LEVEL 134.0 MMOL/L (136-145)
[2025-06-19 09:00] VITALS: BP 132/86
[2025-06-19] MEDS ORDERED: HEPARIN LOCK FLUSH 100 UNITS/ML 3 ML SYRINGE IV PRN (11:25)
[2025-06-19] MEDS ORDERED: SODIUM CHLORIDE 0.9% INJ 10 ML SYR IV PRN (11:25)
[2025-06-19] MEDS: D5W/0.9% SODIUM CHLORIDE 1,000 ML IV SCH (11:49)
[2025-06-19] MEDS: HEPARIN LOCK FLUSH 100 UNITS/ML 3 ML SYRINGE IV SCH (11:50)
[2025-06-19] MEDS: SODIUM CHLORIDE 0.9% INJ 10 ML SYR IV SCH (11:50)
[2025-06-19 12:00] VITALS: BP 122/76; TEMP 98.2; O2SAT 92
[2025-06-19] MEDS: MORPHINE 2 MG/ML 1 ML VIAL IV PRN (18:20)
[2025-06-19 19:29] VITALS: BP 119/80; TEMP 97.3; O2SAT 91
[2025-06-20 04:01] VITALS: BP 104/74; TEMP 98; O2SAT 95
[2025-06-20 08:27] LABS: BASO # 0.0 10^3/uL (0.0-0.2); BASO % 0.2 % (0.0-1.0); EOS # 0.2 10^3/uL (0.0-0.5); EOS % 1.6 % (0.0-3.0); LYMPH # 0.5 10^3/uL (1.5-5.0); LYMPH % 4.7 % (24.0-44.0); MONO # 0.8 10^3/uL (0.0-0.8); MONO % 8.3 % (2.0-8.0); NEUTROPHILS # 8.6 10^3/uL (1.5-8.5); NEUTROPHILS % 84.5 % (36.0-66.0); PLATELET COUNT, AUTOMATED 385 10^3/uL (150-450)
[2025-06-20 08:58] LABS: CALCIUM LEVEL 7.2 MG/DL (8.3-10.6); CARBON DIOXIDE LEVEL 29.0 MMOL/L (20-31); CHLORIDE LEVEL 98.0 MMOL/L (98-107); CREATININE FOR GFR 1.12 MG/DL (0.70-1.30); GLOMERULAR FILTRATION RATE 71.1 (>49); POTASSIUM SERUM 3.4 MMOL/L (3.5-5.1); SODIUM LEVEL 137.0 MMOL/L (136-145)
[2025-06-20] MEDS ORDERED: MORPHINE 10 MG/0.5 ML ORAL CONCENTRATE SOLUTION U/D SL PRN (10:10)
[2025-06-20 11:48] LABS: MAGNESIUM LEVEL 1.7 MG/DL (1.8-2.4)
[2025-06-20 12:00] VITALS: BP 133/88; TEMP 98; O2SAT 95
[2025-06-20] MEDS: POTASSIUM CHLORIDE 10MEQ SR TABLET PO ONE (12:01)
[2025-06-20] MEDS: MORPHINE 2 MG/ML 1 ML VIAL IV PRN (13:40)
[2025-06-20 20:00] VITALS: BP 127/76; TEMP 98.3; O2SAT 94
[2025-06-21 00:23] LABS: CMV QUANT DNA PCR (PLASMA) Not Detected; log10 CMV QN DNA P1 Not Detected log IU/mL
[2025-06-21 04:00] VITALS: BP 112/72; TEMP 97.7; O2SAT 93
[2025-06-21 06:34] LABS: BASO # 0.0 10^3/uL (0.0-0.2); BASO % 0.4 % (0.0-1.0); EOS # 0.3 10^3/uL (0.0-0.5); EOS % 4.3 % (0.0-3.0); LYMPH # 0.4 10^3/uL (1.5-5.0); LYMPH % 5.2 % (24.0-44.0); MONO # 0.6 10^3/uL (0.0-0.8); MONO % 7.7 % (2.0-8.0); NEUTROPHILS # 6.4 10^3/uL (1.5-8.5); NEUTROPHILS % 81.8 % (36.0-66.0); PLATELET COUNT, AUTOMATED 367 10^3/uL (150-450)
[2025-06-21 07:07] LABS: CALCIUM LEVEL 7.3 MG/DL (8.3-10.6); CARBON DIOXIDE LEVEL 30.0 MMOL/L (20-31); CHLORIDE LEVEL 100.0 MMOL/L (98-107); CREATININE FOR GFR 1.01 MG/DL (0.70-1.30); GLOMERULAR FILTRATION RATE 80.5 (>49); POTASSIUM SERUM 3.9 MMOL/L (3.5-5.1); SODIUM LEVEL 138.0 MMOL/L (136-145)
[2025-06-21 11:58] VITALS: BP 122/79; TEMP 98; O2SAT 96
[2025-06-21] MEDS ORDERED: MORPHINE 10 MG/0.5 ML ORAL CONCENTRATE SOLUTION U/D SL PRN (14:35)
[2025-06-21] MEDS ORDERED: SALIVA SUBSTITUTE BTL MT PRN (14:45)
[2025-06-21] MEDS: METOCLOPRAMIDE 10 MG TAB PO SCH (17:35)
[2025-06-21] MEDS: ONDANSETRON 4MG ORAL DISINTEGRATING TAB PO SCH (17:36)
[2025-06-21] MEDS: MORPHINE 10 MG/0.5 ML ORAL CONCENTRATE SOLUTION U/D SL PRN (17:37)
[2025-06-21 20:20] VITALS: BP 128/77; TEMP 97.8; O2SAT 95
[2025-06-22 04:10] VITALS: BP 121/75; TEMP 98.2; O2SAT 97
[2025-06-22 07:26] LABS: BASO # 0.0 10^3/uL (0.0-0.2); BASO % 0.3 % (0.0-1.0); EOS # 0.2 10^3/uL (0.0-0.5); EOS % 2.0 % (0.0-3.0); LYMPH # 0.5 10^3/uL (1.5-5.0); LYMPH % 4.5 % (24.0-44.0); MONO # 0.7 10^3/uL (0.0-0.8); MONO % 6.6 % (2.0-8.0); NEUTROPHILS # 9.5 10^3/uL (1.5-8.5); NEUTROPHILS % 86.1 % (36.0-66.0); PLATELET COUNT, AUTOMATED 415 10^3/uL (150-450)
[2025-06-22 08:12] LABS: CALCIUM LEVEL 7.3 MG/DL (8.3-10.6); CARBON DIOXIDE LEVEL 27.0 MMOL/L (20-31); CHLORIDE LEVEL 98.0 MMOL/L (98-107); CREATININE FOR GFR 1.03 MG/DL (0.70-1.30); GLOMERULAR FILTRATION RATE 78.6 (>49); POTASSIUM SERUM 3.6 MMOL/L (3.5-5.1); SODIUM LEVEL 138.0 MMOL/L (136-145)
[2025-06-22] MEDS: PANTOPRAZOLE 40MG TAB PO SCH (09:14)
[2025-06-22] MEDS ORDERED: VALG450T10 PO (11:54)
[2025-06-22 11:58] VITALS: BP 125/83; TEMP 97; O2SAT 98
[2025-06-22] MEDS ORDERED: METO10TA2 PO (11:58)
[2025-06-22] MEDS ORDERED: ONDA-282 PO (11:58)
[2025-06-22] MEDS ORDERED: MORP10SO21 SL (23:55)
[2025-06-23] MEDS ORDERED: MORP1SOL4 PO ×2 (10:55→11:26)
== END 2025-06-22 13:13 | disposition hospice, home (50) | DRG 392 ==
LOC: EDBD 10:29 → M ED 10:29 → M ED INP 20:27 → M PCU 22:18 → M MS4PR 06-16 10:30 → OBSVTOIN 06-16 13:45
PROVIDERS: ADMIT Internal Medicine Nephrology; ATTEND Student in an Organized Health Care Education/Training Program
DX: K52.9 Noninfective gastroenteritis and colitis, unspecified (principal); C79.51 Secondary malignant neoplasm of bone; J90 Pleural effusion, not elsewhere classified; J98.11 Atelectasis; B25.8 Other cytomegaloviral diseases; C64.2 Malignant neoplasm of left kidney, except renal pelvis; C77.2 Secondary and unspecified malignant neoplasm of intra-abdominal lymph nodes; R10.10 Upper abdominal pain, unspecified; E03.9 Hypothyroidism, unspecified; D64.9 Anemia, unspecified; R53.1 Weakness; R53.81 Other malaise; Z66 Do not resuscitate; I10 Essential (primary) hypertension; E78.5 Hyperlipidemia, unspecified; G89.29 Other chronic pain; G47.33 Obstructive sleep apnea (adult) (pediatric); R42 Dizziness and giddiness; R29.6 Repeated falls; E88.09 Other disorders of plasma-protein metabolism, not elsewhere classified; Z79.890 Hormone replacement therapy; Z79.899 Other long term (current) drug therapy; Z91.040 Latex allergy status; Z88.8 Allergy status to other drugs, medicaments and biological substances